=== PATIENT | male | born 1990 | race African-American/Black ===

== ENCOUNTER 2017-07-19 21:32 | Emergency (ER) | payer OTHER ==
[~2017-07-19] VITALS: Ht 190.5 cm; Wt 122.5 kg
--- NOTE | ~2017-07-19 | CT71 ---
[facility] A Service of [facility] RADIOLOGY TEXT RESULTS PATIENT: KESHAV VELA LOCATION: [facility] : [birth year] UNIT #: [id number] AGE: [address]: Dana Reece APRN SEX: M ORDER DR: [id number] [facility] [address]. [place], [place] [address] [id number] E MR#: [id number] Acc #: [id number] NAME: KESHAV VELA : 1990 SEX: M STUDY DATE/TIME: 07/19/2017 23:53 UNIT: CJ ROOM: STUDY DESCRIPTION: CT Head Wo Contrast Attending Physician: Dana Reece A.P.R.N. Ordering Physician: Dana Reece A.P.R.N. Primary Care Physician: Primary Care Physician No MEDICAL IMAGING REPORT This report is preliminary unless electronic signature is present EXAM CT head, noncontrast, 07/19/2017 HISTORY 25-year-old male in the ED after fall down stairs tonight. He complains of headache and left side neck pain. TECHNIQUE CT examination of the head without IV contrast. The CT exam was performed with one or more of the following radiation dose reduction techniques: automatic exposure control, adjustment of mA and/or kV according to patient size, and iterative reconstruction. FINDINGS The examination is negative. No evidence of intracranial hemorrhage, cerebral edema, mass effect or additional abnormality. No but no visible skull fracture. IMPRESSION Negative head CT examination. Dictated by... Evert Teixeira M.D. THIS IS AN ELECTRONICALLY VERIFIED REPORT Evert Teixeira M.D. at 07/20/2017 8:56 PM RGW/celine TD: 07/20/2017 09:11 JOB #: [id number] [facility] A Service of [facility] RADIOLOGY TEXT RESULTS PATIENT: KESHAV VELA LOCATION: [facility] : 92 UNIT #: [id number] AGE: [address]: Dana Reece APRN SEX: M ORDER DR: MEDICAL IMAGING REPORT Page 1 of 1 COPY
--- NOTE | ~2017-07-19 | CR58 ---
[facility] A Service of [facility] RADIOLOGY TEXT RESULTS PATIENT: KESHAV VELA LOCATION: [facility] : [birth year] UNIT #: [id number] AGE: [address]: Dana Reece APRN SEX: M ORDER DR: [id number] [facility] [address] [place], [place] [address] [id number] E MR#: [id number] Acc #: [id number] NAME: KESHAV VELA : 1990 SEX: M STUDY DATE/TIME: 07/19/2017 23:53 UNIT: [facility] ROOM: STUDY DESCRIPTION: CR Cervical Spine 2 or 3 Views Attending Physician: Dana Reece A.P.R.N. Ordering Physician: Dana Reece A.P.R.N. Primary Care Physician: No Primary Care Physician MEDICAL IMAGING REPORT This report is preliminary unless electronic signature is present EXAM Cervical spine series 07/19/2017. HISTORY 26-year-old male in the ED with headache and left side neck pain after fall down stairs earlier today. TECHNIQUE Three-view cervical spine series with additional swimmer's lateral image. FINDINGS No acute or chronic fracture deformity is demonstrated. Cervical disc spaces and cervical vertebral alignment are within normal limits. IMPRESSION Negative cervical spine series. Dictated by... Evert Teixeira M.D. THIS IS AN ELECTRONICALLY VERIFIED REPORT Evert Teixeira M.D. at 07/20/2017 8:56 PM RGW/gz TD: 07/20/2017 09:02 JOB #: [id number] MEDICAL IMAGING REPORT Page 1 of 1 COPY
== END 2017-07-20 00:52 | disposition home or self-care (01) ==
LOC: CED 21:32
DX: S16.1XXA Strain of muscle, fascia and tendon at neck level, initial encounter (principal); I10 Essential (primary) hypertension; F17.210 Nicotine dependence, cigarettes, uncomplicated; W10.9XXA Fall (on) (from) unspecified stairs and steps, initial encounter; Y92.009 Unspecified place in unspecified non-institutional (private) residence as the place of occurrence of the external cause
CPT/HCPCS: 70450; 72040; 96372; 99284; J1885